=== PATIENT | male | born 1945 | race African-American/Black ===

== ENCOUNTER → 2020-03-31 | Outpatient (CLI) | payer MEDICARE | END | disposition home or self-care (01) | LOC: LAB 11:39 | PROVIDERS: ATTEND Urology | DX: Z01.818 Encounter for other preprocedural examination (principal); Z11.59 Encounter for screening for other viral diseases | CPT/HCPCS: C9803; U0003 ==

== ENCOUNTER 2020-04-02 06:03 | Inpatient (IN) | payer MEDICARE, MEDICAID ==
[~2020-04-02] VITALS: Ht 177.8 cm; Wt 79.8 kg
[2020-04-02] MEDS ORDERED: LACTATED RINGERS 1,000 ML IV SCH (08:00)
[2020-04-02 08:54] LABS: CLARITY URINE CLOUDY (CLEAR); COLOR URINE YELLOW (YELLOW); KETONES URINE TRACE (NEGATIVE); LEUKOCYTE ESTERASE URINE 2+ (NEGATIVE); NITRITE URINE NEGATIVE (NEGATIVE); OCCULT BLOOD URINE 2+ (NEGATIVE); PROTEIN URINE 3+ (NEGATIVE); SPECIFIC GRAVITY URINE 1.021 (1.005-1.030); UROBILINOGEN URINE 0.2 E.U./dL (0.2-1.0)
[2020-04-02] MEDS ORDERED: SODIUM CHLORIDE 0.9% 1,000 ML IV ONE (09:22)
[2020-04-02] MEDS ORDERED: ONDANSETRON HCL 4MG/2ML INJ IV PRN (09:30)
[2020-04-02] MEDS ORDERED: MIDAZOLAM HCL 2 MG/2 ML VIAL ONE (09:30)
[2020-04-02] MEDS ORDERED: FENTANYL CITRATE/PF 50MCG/ML 2ML VIAL ONE ×2 (09:30→09:48)
[2020-04-02] MEDS ORDERED: GLYCOPYRROLATE 0.2 MG/ML 2ML VIAL ONE (09:30)
[2020-04-02] MEDS ORDERED: MORPHINE SULFATE 2 MG/ML CPJ (NOT FOR IM USE) IV PRN (09:30)
[2020-04-02] MEDS ORDERED: PROPOFOL 200MG/20ML VIAL IV ONE (09:30)
[2020-04-02] MEDS ORDERED: MEPERIDINE HCL/PF 25MG/ML CPJ IV PRN (09:30)
[2020-04-02] MEDS ORDERED: LIDOCAINE HCL/PF 1% 10 MG/ML 5ML VIAL ONE (09:31)
[2020-04-02] MEDS ORDERED: SUCCINYLCHOLINE CHLORIDE 200MG/10ML IV ONE (09:31)
[2020-04-02] MEDS ORDERED: METOCLOPRAMIDE HCL 10MG/2ML VIAL ONE (09:31)
[2020-04-02] MEDS ORDERED: ERGO500013 PO (10:29)
[2020-04-02] MEDS ORDERED: ATOR40TA70 PO (10:29)
[2020-04-02] MEDS ORDERED: TERA5CAP4 PO (10:29)
[2020-04-02] MEDS ORDERED: AMOX-494 PO (10:29)
[2020-04-02] MEDS ORDERED: AMLO10TA80 PO (10:29)
[2020-04-02] MEDS ORDERED: MAGNESIUM HYDROXIDE 400MG/5ML 30ML UDC PO PRN (10:30)
[2020-04-02] MEDS ORDERED: HYDROCODONE/ACETAMINOPHEN 10/325MG TABLET PO PRN (10:30)
[2020-04-02] MEDS ORDERED: LORAZEPAM 1MG TABLET PO PRN (10:30)
[2020-04-02] MEDS ORDERED: HYDROCODONE/ACETAMINOPHEN 5/325MG TABLET PO PRN (10:30)
[2020-04-02] MEDS ORDERED: ACETAMINOPHEN 325MG TABLET PO PRN (10:30)
[2020-04-02] MEDS ORDERED: NITROGLYCERIN 0.4MG TABLET SL SL PRN (10:45)
[2020-04-02] MEDS ORDERED: CLOP75TA4 PO (11:19)
[2020-04-02] MEDS ORDERED: NITR0.4T49 SL (11:19)
[2020-04-02] MEDS ORDERED: METO200T48 PO (11:19)
[2020-04-02] MEDS ORDERED: CEFAZOLIN SODIUM 1000MG/VIAL IV SCH (14:00)
[2020-04-02 14:07] VITALS: BP 109/62
[2020-04-02 16:00] VITALS: BP 147/59
[2020-04-02 16:03] LABS: CHLORIDE 111 mEq/L (98-107)
[2020-04-02] MEDS ORDERED: CEFAZOLIN 1000MG PREMIX 50 ML IV SCH (17:30)
[2020-04-02 20:00] VITALS: BP 148/69
[2020-04-02] MEDS: METOPROLOL TARTRATE 100MG TABLET PO SCH (21:00)
[2020-04-03] VITALS: BP 140/67
[2020-04-03 08:00] VITALS: BP 147/60
[2020-04-03] MEDS: METOPROLOL TARTRATE 100MG TABLET PO SCH (08:47)
[2020-04-03] MEDS ORDERED: AMLODIPINE 10MG TABLET PO SCH (09:00)
[2020-04-03 09:13] VITALS: BP 147/60
[2020-04-03] MEDS ORDERED: LEVOFLOXACIN 500MG TABLET PO SCH (11:00)
== END 2020-04-03 10:41 | disposition home or self-care (01) | DRG 670 ==
LOC: OR 06:03 → 6EST 06:05
PROVIDERS: ADMIT Urology; ATTEND Urology
PROC: 0TBB8ZZ Excision of Bladder, Via Natural or Artificial Opening Endoscopic (ICD-10-PCS; principal; 2020-04-02)
DX: C67.9 Malignant neoplasm of bladder, unspecified (principal); I10 Essential (primary) hypertension; R31.0 Gross hematuria; Z20.828 Contact with and (suspected) exposure to other viral communicable diseases; Z82.49 Family history of ischemic heart disease and other diseases of the circulatory system; Z87.891 Personal history of nicotine dependence; Z83.3 Family history of diabetes mellitus; Z79.899 Other long term (current) drug therapy
CPT/HCPCS: 36415; 71045; 80048; 81003; 84132; 87077; 87186; 88307; J0330; J0690; J2250; J2405; J2704; J2765; J3010; J3490